=== PATIENT | female | born 1995 | race African-American/Black ===

== ENCOUNTER 2017-08-31 16:11 | Inpatient (IN) | payer OTHER ==
[~2017-08-31] VITALS: Ht 162.6 cm; Wt 52.7 kg
[2017-08-31 17:28] LABS: PLATELET COUNT 320 x10^3mcL (130-400)
[2017-08-31 17:41] LABS: BASOPHIL % 0 % (0-2); CARBON DIOXIDE 24.7 mmol/L (21-32); CHLORIDE SERUM 102 mmol/L (98-107); CREATININE SERUM 0.9 mg/dL (0.6-1.0); GFR1 > 60 mL/min; GLUCOSE SERUM 81 mg/dL (74-106); POTASSIUM SERUM 3.7 mmol/L (3.5-5.1); RED CELL DISTRIBUTION WIDTH 23.7 % (11.5-14.5); SODIUM SERUM 136 mmol/L (136-145)
[2017-08-31 17:45] LABS: ALBUMIN 4.3 g/dL (3.4-5.0); ALKALINE PHOSPHATASE 61 U/L (46-116); ALT/SGPT 16 U/L (14-59); AST/SGOT 11 U/L (15-37); BILIRUBIN TOTAL 0.48 mg/dL (0.20-1.00)
[2017-08-31 17:50] LABS: TOTAL PROTEIN, SERUM 8.8 g/dL (6.4-8.2)
[2017-08-31 17:59] LABS: ovalocyte/elliptocyte 2+; rbc morphology (normal/abnorm) ABNORMAL (NORMAL); tear drop cell (dacryocyte) 1+
[2017-08-31] MEDS ORDERED: NATURAL IRON65 MG PO (18:38)
[2017-08-31 20:13] LABS: CHOLESTEROL/HDL RATIO 2.2; MAGNESIUM 2.2 mg/dL (1.8-2.4); PHOSPHOROUS 2.8 mg/dL (2.5-4.9)
[2017-08-31 20:19] LABS: T3 TOTAL 0.94 ng/mL
[2017-08-31 20:23] LABS: FREE T4 1.03 ng/dL (0.76-1.46); FREE THYROXINE INDEX 2.7 ug/dL (1.4-4.5); T4(THYROXINE) 8.3 ug/dL (4.7-13.3)
[2017-08-31 20:24] LABS: RED BLOOD CELLS 4.15 M/mm3 (4.10-5.10)
[2017-08-31 20:27] VITALS: Ht 162.6 cm; Wt 52.7 kg
[2017-08-31 21:15] LABS: IRON 10 ug/dL (50-170); TOTAL IRON BINDING CAPACITY 505 ug/dL (250-450)
[2017-08-31 21:57] VITALS: BP 122/70
[2017-09-01 06:35] VITALS: BP 105/59
[2017-09-01 06:44] LABS: CALCIUM 8.4 mg/dL (8.5-10.1); CARBON DIOXIDE 25.6 mmol/L (21-32); CHLORIDE SERUM 106 mmol/L (98-107); CREATININE SERUM 0.8 mg/dL (0.6-1.0); GFR1 > 60 mL/min; GLUCOSE SERUM 84 mg/dL (74-106); POTASSIUM SERUM 3.7 mmol/L (3.5-5.1); SODIUM SERUM 139 mmol/L (136-145)
[2017-09-01 07:01] LABS: BASOPHIL % 0.3 % (0-2); PLATELET COUNT 223 x10^3mcL (130-400)
[2017-09-01 07:06] LABS: RED CELL DISTRIBUTION WIDTH 23.5 % (11.5-14.5)
[2017-09-01 07:33] LABS: microscopic required? YES; urine erythrocyte TRACE (NEGATIVE)
[2017-09-01 08:32] VITALS: BP 117/61
[2017-09-01 09:33] LABS: rbc morphology (normal/abnorm) ABNORMAL (NORMAL)
[2017-09-01 09:34] LABS: ovalocyte/elliptocyte 2+; tear drop cell (dacryocyte) 1+
[2017-09-01 12:45] VITALS: BP 115/53
[2017-09-01 17:26] VITALS: BP 116/60
[2017-09-01 17:49] LABS: PLATELET COUNT 251 x10^3mcL (130-400)
[2017-09-01 18:36] LABS: BASOPHIL % 0 % (0-2)
[2017-09-01 18:37] LABS: rbc morphology (normal/abnorm) ABNORMAL (NORMAL)
[2017-09-01 21:26] VITALS: BP 116/68
[2017-09-02 05:34] VITALS: BP 112/59
[2017-09-02 08:05] LABS: BASOPHIL % 0.2 % (0-2); PLATELET COUNT 229 x10^3mcL (130-400)
[2017-09-02 08:11] LABS: RED CELL DISTRIBUTION WIDTH 26.6 % (11.5-14.5)
[2017-09-02 08:14] LABS: ovalocyte/elliptocyte 1+; rbc morphology (normal/abnorm) ABNORMAL (NORMAL)
[2017-09-02] MEDS ORDERED: PRENATAL VITAMI1 TA1 PO (09:32)
[2017-09-02 09:40] VITALS: BP 119/67
[2017-09-02 10:40] VITALS: BP 119/67
== END 2017-09-02 11:03 | disposition home or self-care (01) | DRG 566 ==
LOC: ED 16:11 → DU 18:19
PROVIDERS: Emergency Medicine; ADMIT Family Medicine
PROC: 30233N1 Transfusion of Nonautologous Red Blood Cells into Peripheral Vein, Percutaneous Approach (ICD-10-PCS; principal; 2017-09-01)
DX: O99.011 Anemia complicating pregnancy, first trimester (principal); D57.1 Sickle-cell disease without crisis; G90.9 Disorder of the autonomic nervous system, unspecified; Z3A.00 Weeks of gestation of pregnancy not specified
CPT/HCPCS: 84439; J2916; J7030; J7040; P9016; Q0092; Q0163